=== PATIENT | male | born 2005 | race Caucasian/White ===

== ENCOUNTER 2023-02-25 12:11 | Emergency (ER) | payer OTHER ==
[2023-02-25] MEDS ORDERED: VIBRAMYCIN100 MG PO (12:47)
[2023-02-25] MEDS ORDERED: MYCOLOG OINTMEN15 GM T (13:00)
[2023-02-25] MEDS ORDERED: Kenalog 0.5% Cr15 GM T (13:02)
== END 2023-02-25 14:03 | disposition home or self-care (01) ==
LOC: ED 12:11
DX: S61.300A Unspecified open wound of right index finger with damage to nail, initial encounter (principal); S61.302A Unspecified open wound of right middle finger with damage to nail, initial encounter; B37.2 Candidiasis of skin and nail; Z88.6 Allergy status to analgesic agent; W26.8XXA Contact with other sharp object(s), not elsewhere classified, initial encounter; Y93.89 Activity, other specified; Y92.89 Other specified places as the place of occurrence of the external cause; Y99.0 Civilian activity done for income or pay